=== PATIENT | female | born 1975 | race Two or more races ===

== ENCOUNTER 2019-09-14 11:10 | Emergency (ER) | payer OTHER ==
[~2019-09-14] VITALS: Ht 157.5 cm; Wt 114.8 kg
[~2019-09-14 11:10] MED LIST: ATARAX25 MG PO; Acetaminophen/Cod #3 Tablet PO; Mucinex 600 MG TABLET.SA PO; Mylicon 125MG PO; ZYRTEC10 M3 PO
[2019-09-14] MEDS ORDERED: GLIMEPIRIDE2 MG (11:42)
[2019-09-14] MEDS ORDERED: TOPROL XL50 M1 (11:43)
[2019-09-14] MEDS ORDERED: LIPITOR20 MG PO (11:43)
[2019-09-14] MEDS ORDERED: ALTACE2.5 MG PO (11:44)
[2019-09-14] MEDS ORDERED: ALTACE10 MG PO (11:44)
== END 2019-09-14 20:06 | disposition home or self-care (01) ==
LOC: ER 11:10
DX: J06.9 Acute upper respiratory infection, unspecified (principal)

== ENCOUNTER 2023-03-20 08:38 | Emergency (ER) | payer OTHER ==
[~2023-03-20] VITALS: Ht 154.9 cm; Wt 105.7 kg
[~2023-03-20 08:38] MED LIST changes: +ALTACE10 MG PO; +ALTACE2.5 MG PO; +GLIMEPIRIDE2 MG; +LIPITOR20 MG PO; +TOPROL XL50 M1
[2023-03-20] MEDS ORDERED: SYNJARDY 12.5-1 EACH PO (09:01)
[2023-03-20] MEDS ORDERED: CYCLOBENZAPRINE10 MG PO (12:30)
[2023-03-20] MEDS ORDERED: TYLENOL ARTHRI650 MG PO (12:32)
== END 2023-03-20 12:45 | disposition home or self-care (01) ==
LOC: ER 08:38
DX: M54.89 Other dorsalgia (principal); Z88.6 Allergy status to analgesic agent; Z88.0 Allergy status to penicillin; Z88.2 Allergy status to sulfonamides; E11.9 Type 2 diabetes mellitus without complications; Z79.84 Long term (current) use of oral hypoglycemic drugs

== ENCOUNTER 2023-11-06 07:03 | Emergency (ER) | payer OTHER ==
[~2023-11-06] VITALS: Ht 162.6 cm; Wt 127.0 kg
[~2023-11-06 07:03] MED LIST changes: +CYCLOBENZAPRINE10 MG PO; +SYNJARDY 12.5-1 EACH PO; +TYLENOL ARTHRI650 MG PO
[2023-11-06] MEDS ORDERED: OZEMPIC0.25 MG/02 IM (07:20)
[2023-11-06 08:56] LABS: CALCIUM 9.2 mg/dL (8.5-10.1); CREATININE SERUM 0.7 mg/dL (0.55-1.02); GFR 89.31; POTASSIUM 4.03 mEq/L (3.5-5.1)
== END 2023-11-06 11:11 | disposition home or self-care (01) ==
LOC: ER 07:04
PROVIDERS: Emergency Medicine
DX: M94.0 Chondrocostal junction syndrome [Tietze] (principal); J45.909 Unspecified asthma, uncomplicated; E11.9 Type 2 diabetes mellitus without complications; Z79.84 Long term (current) use of oral hypoglycemic drugs; I10 Essential (primary) hypertension; Z88.6 Allergy status to analgesic agent; Z88.0 Allergy status to penicillin; Z88.2 Allergy status to sulfonamides